=== PATIENT | male | born 1940 | race Caucasian/White ===

== ENCOUNTER → 2020-11-10 | Outpatient (CLI) | payer OTHER ==
[2020-11-10 10:46] LABS: HEMATOCRIT 43.5 % (42.0-52.0); HEMOGLOBIN 13.4 g/dl (13.5-17.5); MEAN CORPUSCULAR HEMOGLOBIN 28.1 pg (27.0-33.0); MEAN CORPUSCULAR HGB CONC 30.8 g/dl (32.0-36.5); MEAN CORPUSCULAR VOLUME 91.2 fl (80.0-96.0); PLATELET COUNT, AUTOMATED 264 10^3/uL (150-450); RED BLOOD COUNT 4.77 10^6/uL (4.30-6.10); WHITE BLOOD COUNT 10.7 10^3/uL (4.0-10.0)
[2020-11-10 11:16] LABS: CALCIUM LEVEL 9.6 MG/DL (8.8-10.2); CREATININE FOR GFR 1.81 MG/DL (0.70-1.30); GLOMERULAR FILTRATION RATE 38.7 (>42); POTASSIUM SERUM 4.9 MEQ/L (3.5-5.1)
== END ==
LOC: M LAB 10:13
PROVIDERS: ATTEND Physician Assistant
DX: I87.2 Venous insufficiency (chronic) (peripheral) (principal); I70.203 Unspecified atherosclerosis of native arteries of extremities, bilateral legs

== ENCOUNTER → 2021-01-19 | Outpatient (CLI) | payer OTHER ==
[~2021-01-19] MED LIST: ASPI81TA26 PO; BUME0.5T2 PO; COEN100T PO; DILT12SRCA PO; ELIQ2.5T PO; GABA-282 PO; IRON240T PO; ISOVUE-300 61% 50ML VIAL As Ordered ONE; LIDOCAINE 1% MDV 20ML VIAL As Ordered ONE; MIDAZOLAM INJ 2MG/2ML VIAL (J2250 PER 1MG) As Ordered ONE; OSTETAB2 PO; PANT40TA29 PO; PRAV40TA2 PO; PRES10CA2 PO; RENATAB5 PO; SPIR-10 PO; fentaNYL 100 MCG/2 ML INJECTION (J3010) As Ordered ONE
[2021-01-19 07:00] LABS: HEMATOCRIT 44.7 % (42.0-52.0); HEMOGLOBIN 13.5 g/dl (13.5-17.5); MEAN CORPUSCULAR HEMOGLOBIN 27.6 pg (27.0-33.0); MEAN CORPUSCULAR HGB CONC 30.2 g/dl (32.0-36.5); MEAN CORPUSCULAR VOLUME 91.4 fl (80.0-96.0); PLATELET COUNT, AUTOMATED 248 10^3/uL (150-450); RED BLOOD COUNT 4.89 10^6/uL (4.30-6.10); WHITE BLOOD COUNT 12.2 10^3/uL (4.0-10.0)
[2021-01-19 07:19] LABS: CALCIUM LEVEL 9.7 MG/DL (8.8-10.2); CREATININE FOR GFR 1.63 MG/DL (0.70-1.30); GLOMERULAR FILTRATION RATE 43.7 (>42)
[2021-01-19 08:20] LABS: MAGNESIUM LEVEL 2.4 MG/DL (1.8-2.4)
--- NOTE | 2021-01-19 08:45 | ROOPDOC ---
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 Ultrasound-guided access left common femoral artery 2. Aortoiliofemoral arteriogram 3. Selection right common femoral artery and superficial femoral artery and right lower extremity runoff 4. Angioplasty right distal SFA and popliteal artery with 5 x 206 x 200 [place] balloons 5. Completion arteriogram right lower extremity 6. Mynx closure left common femoral artery SURGEON: Shagufta Juarez MD ANESTHESIA: Local anesthesia 7 mL lidocaine. Moderate intravenous conscious sedation was supervised by Dr. Juarez. The patient was independently monitored by registered nurse assigned to the Department of radiology using automated blood pressure, EKG, and pulse oximetry. The details sedation record is permanently stored in the hospital information system. The following is a brief sedation record: Start time 07:47, stop time 08:17, Versed 0.5 mg IV, fentanyl 25 g IV, heparin 3000 units IV. INDICATION FOR PROCEDURE: This is a very pleasant 80-year-old patient with a combination of arterial and venous insufficiency. We plan to revascularize the lower extremities from an arterial standpoint and then focus on treatment of his chronic venous changes in the lower extremities. His right lower extremity claudication symptoms are worse in the left, so we will start with a lower extremity on the right first. Risks benefits and alternatives to an arteriogram and potential intervention were explained to the patient. He is agreeable to proceed. Informed consent was obtained. INTERPRETATION: 1. The distal aorta, common iliac arteries, hypogastric arteries, and external iliac arteries are widely patent bilaterally. There is good flow into widely patent common femoral arteries bilaterally. 2. The right common femoral artery has excellent flow into both the profunda and the SFA. The right SFA towards Shane's canal has several areas of focal stenosis, a training 40-50%, and then good runoff through the proximal popliteal artery, but some tortuosity and stenosis is noted at the mid popliteal artery, then there is widely patent flow through the distal popliteal artery and good 3 vessel runoff to the foot with no significant tibial stenosis noted. 3. After angioplasty of the right superficial femoral artery distally and popliteal artery with the 5 x 200 [place] balloon, we still noted some residual stenosis. We therefore carefully upsized to a 6 x 200 [place] balloon and a second angioplasty resulted in widely patent flow through the SFA and popliteal artery. No extravasation, dissection, embolization were noted. No significant residual stenosis was noted. REPORT OF OPERATION: The patient was brought to the angiographic suite in stable condition. His bilateral groins were prepped and draped in sterile fashion. A timeout was performed. Local anesthesia was administered to the skin and subcutaneous tissue over the left common femoral artery. A microneedle was used to access the artery under ultrasound guidance. A wire was passed through this access and the needle was removed. A 4 Malay sheath was placed and flushed with saline. A flushing catheter Glidewire was advanced into the distal aorta. Aortoiliofemoral arteriograms were performed, please see interpretation above. We went up and over the bifurcation with a Glidewire and flushing catheter. We selected the right common femoral artery and superficial femoral artery and right lower extremity arteriograms were performed, please see interpretation above. We cleansed the Glidewire into the distal popliteal artery and fluoroscopic guidance. Weeks change the sheath 4 86 x 45 cm destination sheath over the bifurcation. The sheath was flushed with saline. Heparin was given and allowed to circulate. We advanced a 5 x 200 [place] balloon over the wire and a three-minute inflations was performed at the distal SFA and proximal and mid popliteal artery. Because the stenosis and popliteal artery was in the midportion, we did not want to over angioplasty with a larger balloon initially unless necessary. We would not want to cause a dissection that would result in stenting behind the knee. However, we noted that there was still some residual stenosis at both the distal SFA and in the mid popliteal artery. We therefore upsized to a 6 x 200 [place] balloon and did a low atmosphere three-minute inflations. Following this, there is a marked improvement inflow through the SFA and popliteal with no significant residual stenosis, no extravasation dissection or embolization noted. We then exchange the sheath for short 6 Malay sheath and a Mynx closure device was deployed at the left common femoral artery with good hemostasis. Pressure was held and sterile dressings were applied. The patient was taken to recovery in stable condition. He tolerated the procedure and the sedation well. He did have a short run of V. tach at the beginning of the procedure, asymptomatic, that occurred about 4 minutes after sedation was given. It resolved spontaneously, and did not recur. He has chronic A. fib and was in A. fib throughout the procedure. Blood pressure remained stable and the patient had no chest pain, no mental status changes. 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 Likely this is related to chronic issues, and since it did not recur, we continued with the procedure without further incidents. ESTIMATED BLOOD LOSS: Approximately 2 mL. COMPLICATIONS: None PLAN: Okay to resume home diet and medications including eliquis. No lifting greater than 5 pounds or strenuous exercise for 72 hours. Follow-up in 1 week to check groin access site and perfusion. After arterial revascularization complete, we will focus on the patient's venous disease and see if we can improve his symptoms in the lower extremities. We appreciate the opportunity to participate in the care of this patient. SHAGUFTA JUAREZ MD Jan 19, 2021 08:45
[2021-01-19 12:30] VITALS: BP 148/70
== END ==
LOC: M IRPRO 06:14
PROVIDERS: ATTEND Surgery Vascular Surgery
DX: I70.211 Atherosclerosis of native arteries of extremities with intermittent claudication, right leg (principal); I10 Essential (primary) hypertension; I87.2 Venous insufficiency (chronic) (peripheral)
CPT/HCPCS: 37224; 75630; 75774; 76000; 80048; 83735; 85027; 99152; 99153; C1725; C1760; C1769; C1887; C1894; J1644; J2250; J3010; Q9967